=== PATIENT | female | born 1950 | race Two or more races ===

== ENCOUNTER 2021-03-28 10:55 | Outpatient (CLI) | payer OTHER | END 2021-03-28 11:03 | disposition home or self-care (01) | LOC: RAD 10:55 | PROVIDERS: ATTEND Orthopaedic Surgery | DX: M25.561 Pain in right knee (principal); M25.562 Pain in left knee ==

== ENCOUNTER 2021-05-14 13:31 | Outpatient (CLI) | payer OTHER | END 2021-05-14 13:32 | disposition home or self-care (01) | LOC: NUCLEAR 13:31 | PROVIDERS: ATTEND Orthopaedic Surgery | DX: M81.0 Age-related osteoporosis without current pathological fracture (principal) ==

== ENCOUNTER 2022-06-10 10:51 | Outpatient (CLI) | payer OTHER ==
[~2022-06-10] VITALS: Ht 160 cm; Wt 80.3 kg
== END 2022-06-10 11:07 | disposition home or self-care (01) ==
LOC: LAB 10:51
PROVIDERS: ATTEND Orthopaedic Surgery
DX: D64.9 Anemia, unspecified (principal); E88.9 Metabolic disorder, unspecified; D68.8 Other specified coagulation defects; N39.0 Urinary tract infection, site not specified; A49.02 Methicillin resistant Staphylococcus aureus infection, unspecified site; E11.9 Type 2 diabetes mellitus without complications; I10 Essential (primary) hypertension; Z76.89 Persons encountering health services in other specified circumstances

== ENCOUNTER → 2022-06-19 08:00 | Outpatient (CLI) | payer OTHER ==
[~2022-06-19 08:00] MED LIST: ALBUTEROL S5 MG/1 ML IH; ATORVASTATIN CA20 MG PO; BREO IH; COZAAR50 MG PO; DILT-XR120 MG PO; FOSAMAX70 MG PO; SINGULAIR10 MG PO
== END | disposition home or self-care (01) ==
LOC: LAB 08:00 → SURG 06-25 08:30 → EDSTATUS 07-01 10:45
PROVIDERS: ATTEND Orthopaedic Surgery
DX: M17.0 Bilateral primary osteoarthritis of knee (principal); Z03.818 Encounter for observation for suspected exposure to other biological agents ruled out; N39.0 Urinary tract infection, site not specified

== ENCOUNTER → 2022-06-21 08:31 | Outpatient (CLI) | payer OTHER | END | disposition home or self-care (01) | LOC: LAB 08:31 | PROVIDERS: ATTEND Orthopaedic Surgery | DX: N39.0 Urinary tract infection, site not specified (principal) ==

== ENCOUNTER → 2022-06-28 08:48 | Outpatient (CLI) | payer OTHER | END | disposition home or self-care (01) | LOC: LAB 08:48 | PROVIDERS: ATTEND Orthopaedic Surgery | DX: N39.0 Urinary tract infection, site not specified (principal) ==

== ENCOUNTER → 2022-12-06 10:20 | Outpatient (CLI) | payer OTHER ==
[~2022-12-06] VITALS: Ht 160 cm; Wt 80.3 kg
== END | disposition home or self-care (01) ==
LOC: LAB 10:20
PROVIDERS: ATTEND Orthopaedic Surgery
DX: D64.89 Other specified anemias (principal); E88.89 Other specified metabolic disorders; D68.8 Other specified coagulation defects; N39.0 Urinary tract infection, site not specified; A49.02 Methicillin resistant Staphylococcus aureus infection, unspecified site; E11.9 Type 2 diabetes mellitus without complications; Z76.89 Persons encountering health services in other specified circumstances; I10 Essential (primary) hypertension; I49.9 Cardiac arrhythmia, unspecified

== ENCOUNTER 2022-12-09 08:10 | Inpatient (IN) | payer OTHER ==
[~2022-12-09] VITALS: Ht 160 cm; Wt 81.6 kg
[2022-12-16] MEDS ORDERED: CETIRIZINE HCL10 MG (07:58)
[2022-12-16] MEDS ORDERED: NITROFURANTOIN50 MG (07:59)
[2022-12-16] MEDS ORDERED: TRELEGY ELLIPT1 EAC1 (07:59)
[2022-12-16] MEDS ORDERED: DICLOFENAC SOD100 GM (07:59)
[2022-12-16] MEDS ORDERED: BREO ELLIPTA 21 EACH (07:59)
== END 2022-12-19 13:23 | DRG 470 ==
LOC: O/R 12-16 06:13 → SURH 12-16 07:00 → SURG 12-16 14:40
PROVIDERS: ADMIT Orthopaedic Surgery; ATTEND Orthopaedic Surgery
PROC: 0SRC0J9 Replacement of Right Knee Joint with Synthetic Substitute, Cemented, Open Approach (ICD-10-PCS; principal; 2022-12-16 07:00)
DX: M17.11 Unilateral primary osteoarthritis, right knee (principal); D62 Acute posthemorrhagic anemia; I10 Essential (primary) hypertension; E78.5 Hyperlipidemia, unspecified; Z20.822 Contact with and (suspected) exposure to COVID-19

== ENCOUNTER 2023-07-08 10:22 | Outpatient (CLI) | payer OTHER ==
[~2023-07-08 10:22] MED LIST changes: +BREO ELLIPTA 21 EACH; +CETIRIZINE HCL10 MG; +DICLOFENAC SOD100 GM; +NITROFURANTOIN50 MG; +TRELEGY ELLIPT1 EAC1
[2023-07-08 11:21] LABS: HEMOGLOBIN 12.4 g/dL (12.0-15.00); MEAN CELL VOLUME 89.5 fL (80.00-100.00); MEAN CORPUSCULAR HEMOGLOBIN 29.2 pg (27.00-32.0); MEAN CORPUSCULAR HGB CONC 32.7 g/dl (32.0-36.0); PLATELET COUNT 214 K/uL (150-450); RED BLOOD COUNT 4.25 M/uL (4.00-6.00); RED CELL DISTRIBUTION WIDTH 15.3 % (11.5-14.5)
[2023-07-08 11:22] LABS: ABG PH 7.434 (7.35-7.45); ABG PO2 73.4 mmHg (80-100); ABG pCO2 32.1 mmHg (35-45); BASE EXCESS -2.2 mmol/l; BICARBONATE 21.1 mmol/l (23-25)
[2023-07-08 11:23] LABS: allen test SATISFACTORY; o2 21 %; puncture site RADIAL RIGHT
[2023-07-08 11:43] LABS: ERYTHROCYTE SEDIMENTATION RATE 20 mm/hr
== END 2023-07-08 10:24 | disposition home or self-care (01) ==
LOC: LAB 10:22
PROVIDERS: ATTEND Orthopaedic Surgery
DX: M06.4 Inflammatory polyarthropathy (principal); J96.10 Chronic respiratory failure, unspecified whether with hypoxia or hypercapnia; M25.561 Pain in right knee; Z96.651 Presence of right artificial knee joint; Z77.018 Contact with and (suspected) exposure to other hazardous metals

== ENCOUNTER → 2023-08-13 09:08 | Outpatient (CLI) | payer OTHER ==
[2023-08-13 11:00] LABS: ALBUMIN 3.8 gm/dL (3.4-5.0); BILIRUBIN TOTAL 0.99 mg/dL (0.3-1.2); CALCIUM 10.1 mg/dL (8.5-10.1); CREATININE SERUM 0.77 mg/dL (0.55-1.02); GFR 73.28; GLOBULINA 2.8 G/DL (2.4-3.5); MAGNESIUM 2.3 mg/dL (1.8-2.4); PHOSPHOROUS 2.9 mg/dL (2.5-4.9); POTASSIUM 4.24 mEq/L (3.5-5.1); TOTAL PROTEIN 6.6 gm/dL (6.4-8.2)
== END | disposition home or self-care (01) ==
LOC: LAB 09:08
PROVIDERS: ATTEND Orthopaedic Surgery
DX: E55.9 Vitamin D deficiency, unspecified (principal); M85.9 Disorder of bone density and structure, unspecified; E56.1 Deficiency of vitamin K; E21.3 Hyperparathyroidism, unspecified; M81.8 Other osteoporosis without current pathological fracture; E88.89 Other specified metabolic disorders; Z88.7 Allergy status to serum and vaccine

== ENCOUNTER 2023-09-12 12:45 | Outpatient (CLI) | payer OTHER | END 2023-09-12 12:48 | disposition home or self-care (01) | LOC: NUCLEAR 12:45 | PROVIDERS: ATTEND Orthopaedic Surgery | DX: M81.0 Age-related osteoporosis without current pathological fracture (principal) ==

== ENCOUNTER 2024-03-31 14:06 | Inpatient (IN) | payer OTHER ==
[~2024-03-31] VITALS: Ht 160 cm; Wt 78.5 kg
--- NOTE | 2024-03-31 15:10 | NUR ---
PTE ALERTA Y ORIENTADA X3, REFIERE DOLOR EN FLANCO NIA. REFIERE ELLIS GASTROENTEROLOGO LE DIJO TIENE DIVERITCULOS . SE YADI SV Y SE UBICA
[2024-03-31] MEDS ORDERED: 0.9 % SODIUM CHLORIDE 1,000 ML IV STA (16:07)
[2024-03-31] MEDS ORDERED: MEPERIDINE HCL/PF 50 MG/ML VIAL IM STA (16:07)
[2024-03-31] MEDS ORDERED: PROMETHAZINE HCL 25 MG/ML AMPUL IM STA (16:08)
[2024-03-31 16:34] LABS: HEMATOCRIT 39.9 % (36.0-45.00); HEMOGLOBIN 13.4 g/dL (12.0-15.00); MEAN CELL VOLUME 90.9 fL (80.00-100.00); MEAN CORPUSCULAR HEMOGLOBIN 30.5 pg (27.00-32.0); MEAN CORPUSCULAR HGB CONC 33.6 g/dl (32.0-36.0); PLATELET COUNT 209 K/uL (150-450); RED BLOOD COUNT 4.39 M/uL (4.00-6.00); RED CELL DISTRIBUTION WIDTH 14.8 % (11.5-14.5)
--- NOTE | 2024-03-31 16:41 | NUR ---
SE ORIENTA SOBRE TX MEDICO, REFIERE ENTENDER. SE REALIZAN MUESTRAS DE LABORATORIO BAJO MEDIDAS ASEPTICAS. SE ADMINISTRAN MEDICAMENTOS ASHLEIGH ORDEN MEDICA. SE COORDINA CT. PACIENTE MANEJADA POR . SE MANTIENE EN OBSERVACION.
[2024-03-31 16:54] LABS: PROTHROMBIN TIME 10.5 SECONDS (9.0-11.5)
[2024-03-31 16:59] LABS: ALBUMIN 3.9 gm/dL (3.4-5.0); BILIRUBIN TOTAL 0.66 mg/dL (0.3-1.2); BILIRUBIN,CONJUGATED 0.21 mg/dL (0.0-0.2); BILIRUBIN,UNCONJUGATED 0.45 mg/dL (0.0-0.6); CALCIUM 9.6 mg/dL (8.5-10.1); CREATININE SERUM 0.81 mg/dL (0.55-1.02); GFR 69.12; POTASSIUM 4.06 mEq/L (3.5-5.1); TOTAL PROTEIN 7.2 gm/dL (6.4-8.2)
[2024-03-31 17:14] LABS: URINE APPEARANCE Clear; URINE BILIRRUBIN Negative (NEGATIVE); URINE BLOOD Large; URINE COLOR Yellow; URINE GLUCOSE Negative (NEGATIVE); URINE LEUKOCYTE Small; URINE NITRATE Negative; URINE PROTEIN Negative (NEGATIVE); URINE UROBILINOGEN 0.2 E.U./dl
[2024-03-31 17:18] LABS: URINE BACTERIA 28.9 uL (0.0-1933); URINE EPITHELIAL CELLS 6.6 uL (0.0-38.8); URINE RBC 544.8 uL (0.0-20.8); URINE WBC 27.9 uL (0.0-23.2)
[2024-03-31] MEDS ORDERED: MEROPENEM 500 MG/VIAL VIAL IV SCH (22:20)
[2024-03-31] MEDS ORDERED: KETOROLAC TROMETHAMINE 15 MG VIAL IU SCH (22:29)
[2024-03-31] MEDS ORDERED: 0.9 % SODIUM CHLORIDE 1,000 ML IV SCH (22:30)
[2024-03-31] MEDS ORDERED: ACETAMINOPHEN 500 MG GEL..CAP PO PRN (22:30)
[2024-03-31] MEDS ORDERED: ONDANSETRON HCL 4 MG in 0.9 % SODIUM CHLORIDE 50 ML IV PRN (22:30)
[2024-03-31] MEDS ORDERED: MEPERIDINE HCL/PF 25 MG/ML VIAL IM PRN (22:30)
[2024-03-31 23:28] LABS: PARTIAL THROMBOPLASTIN TIME 25.9 SECONDS (22.0-34.0); PROTHROMBIN TIME 10.5 SECONDS (9.0-11.5)
[2024-04-01] MEDS ORDERED: FAMOTIDINE/PF 20 MG in 0.9 % SODIUM CHLORIDE 8 ML IV PUSH SCH (09:00)
[2024-04-01] MEDS ORDERED: DILTIAZEM HCL 120 MG CAP.SR.24H PO SCH (09:00)
[2024-04-01] MEDS ORDERED: LOSARTAN POTASSIUM 50 MG TABLET PO SCH (09:00)
[2024-04-01] MEDS ORDERED: ENOXAPARIN SODIUM 40 MG/0.4 ML SYRINGE SUBCUTANEO SCH (09:00)
[2024-04-01] MEDS ORDERED: METRONIDAZOLE/SODIUM CHLORIDE 100 ML IV SCH (13:00)
[2024-04-01] MEDS ORDERED: ATORVASTATIN CALCIUM 20 MG TABLET PO SCH (17:00)
[2024-04-01 19:01] LABS: CHOL HDL RATIO 2.2 (0-5.0)
[2024-04-02] MEDS ORDERED: CEFTRIAXONE SODIUM 2,000 MG in 0.9 % SODIUM CHLORIDE 100 ML IV SCH (12:00)
[2024-04-02] MEDS ORDERED: KETOROLAC TROMETHAMINE 30 MG VIAL IV SCH (13:42)
[2024-04-02] MEDS ORDERED: AMINO ACIDS 4.25 %/DEXTROSE 5% 1,000 ML PERIFERAL SCH (17:00)
[2024-04-04] MEDS ORDERED: OxyCODONE HCL/APAP UD (PERCOCET) PO PRN (14:00)
[2024-04-04] MEDS ORDERED: COZAAR50 MG PO (14:04)
[2024-04-04] MEDS ORDERED: INTESTINEX680 M1 PO (14:04)
[2024-04-04] MEDS ORDERED: HYOSCYAMINE0.125 M1 SL (14:04)
[2024-04-04] MEDS ORDERED: METRONIDAZOLE500 MG PO (14:04)
[2024-04-04] MEDS ORDERED: LEVOFLOXACIN750 MG PO (14:04)
[2024-04-04] MEDS ORDERED: PANTOPRAZOLE SO20 MG PO (14:04)
[2024-04-04] MEDS ORDERED: OXYC1TAB9 PO (14:04)
[2024-04-04] MEDS ORDERED: DILTIAZEM ER120 M2 PO (14:04)
[2024-04-04] MEDS ORDERED: LIPITOR20 MG PO (14:04)
[2024-04-04] MEDS ORDERED: LACTOBACILLUS ACIDOPHILUS 1 CAP CAP PO SCH (17:00)
[2024-04-04] MEDS ORDERED: HYOSCYAMINE SULFATE 0.125 MG TAB.SUBL SL SCH (18:00)
== END 2024-04-04 14:53 | disposition home or self-care (01) | DRG 392 ==
LOC: ER 14:07 → SEC-K 22:24 → SURH 22:24
PROVIDERS: General Practice; ADMIT Internal Medicine; ATTEND Internal Medicine
PROC: BW21ZZZ Computerized Tomography (CT Scan) of Abdomen and Pelvis (ICD-10-PCS; principal; 2024-03-31)
DX: K57.92 Diverticulitis of intestine, part unspecified, without perforation or abscess without bleeding (principal); I10 Essential (primary) hypertension

== ENCOUNTER 2024-09-19 13:02 | Emergency (ER) | payer OTHER ==
[~2024-09-19] VITALS: Ht 160 cm; Wt 75.7 kg
[~2024-09-19 13:02] MED LIST changes: +DILTIAZEM ER120 M2 PO; +HYOSCYAMINE0.125 M1 SL; +INTESTINEX680 M1 PO; +LEVOFLOXACIN750 MG PO; +LIPITOR20 MG PO; +METRONIDAZOLE500 MG PO; +OXYC1TAB9 PO; +PANTOPRAZOLE SO20 MG PO
[2024-09-19] MEDS ORDERED: LIPITOR40 M1 PO (14:25)
[2024-09-19] MEDS ORDERED: LEVALBUTEROL HCL 1.25 MG/3 ML SOLUTION IH SCH (15:00)
[2024-09-19] MEDS ORDERED: GUAIFENESIN/DEXTROMETHORPHAN 10ML BLIST.PACK PO ONE (15:00)
[2024-09-19] MEDS ORDERED: METHYLPREDNISOLONE SOD SUCC 125 MG VIAL IV ONE (15:00)
[2024-09-19] MEDS ORDERED: AZITHROMYCIN 500 MG VIAL IV ONE (15:00)
[2024-09-19] MEDS ORDERED: IPRATROPIUM BROMIDE 0.5 MG/2.5 ML AMPUL.NEB IH SCH (15:00)
[2024-09-19 16:48] LABS: HEMOGLOBIN 13.7 g/dL (12.0-15.00); MEAN CELL VOLUME 93.2 fL (80.00-100.00); MEAN CORPUSCULAR HEMOGLOBIN 30.4 pg (27.00-32.0); MEAN CORPUSCULAR HGB CONC 32.7 g/dl (32.0-36.0); PLATELET COUNT 191 K/uL (150-450); RED BLOOD COUNT 4.51 M/uL (4.00-6.00); RED CELL DISTRIBUTION WIDTH 14.6 % (11.5-14.5)
[2024-09-19 17:14] LABS: ALBUMIN 3.8 gm/dL (3.4-5.0); BILIRUBIN TOTAL 0.74 mg/dL (0.3-1.2); CALCIUM 9.4 mg/dL (8.5-10.1); CREATININE SERUM 0.92 mg/dL (0.55-1.02); GFR 59.51; GLOBULINA 3.1 G/DL (2.4-3.5); POTASSIUM 3.9 mEq/L (3.5-5.1); TOTAL PROTEIN 6.9 gm/dL (6.4-8.2)
[2024-09-19] MEDS ORDERED: QC TUSSIN DM L118 ML PO (18:01)
[2024-09-19] MEDS ORDERED: LEVALBUTER1.25 MG/0. IH (18:01)
[2024-09-19] MEDS ORDERED: OSEL75CA PO (18:01)
[2024-09-19] MEDS ORDERED: IPRATROPIU0.2 MG/1 M IH (18:01)
[2024-09-19] MEDS ORDERED: OSELTAMIVIR PHOSPHATE 75 MG CAPSULE PO ONE (18:15)
== END 2024-09-19 18:31 | disposition home or self-care (01) ==
LOC: ER 13:05
PROVIDERS: General Practice
DX: R53.81 Other malaise (principal); J10.1 Influenza due to other identified influenza virus with other respiratory manifestations; Z20.822 Contact with and (suspected) exposure to COVID-19; Z88.0 Allergy status to penicillin
CPT/HCPCS: 36415; 71250; 96365; 99284; J0456; J3490

== ENCOUNTER 2025-01-05 23:45 | Emergency (ER) | payer OTHER ==
[~2025-01-05] VITALS: Ht 160 cm; Wt 73.5 kg
[~2025-01-05 23:45] MED LIST changes: +IPRATROPIU0.2 MG/1 M IH; +LEVALBUTER1.25 MG/0. IH; +LIPITOR40 M1 PO; +OSEL75CA PO; +QC TUSSIN DM L118 ML PO
[2025-01-06] MEDS ORDERED: 0.9 % SODIUM CHLORIDE 1,000 ML IV ONE (01:15)
[2025-01-06 01:59] LABS: HEMATOCRIT 40.8 % (36.0-45.00); HEMOGLOBIN 13.7 g/dL (12.0-15.00); MEAN CORPUSCULAR HEMOGLOBIN 30.5 pg (27.00-32.0); MEAN CORPUSCULAR HGB CONC 33.5 g/dl (32.0-36.0); PLATELET COUNT 174 K/uL (150-450); RED BLOOD COUNT 4.48 M/uL (4.00-6.00); RED CELL DISTRIBUTION WIDTH 14.4 % (11.5-14.5)
[2025-01-06 02:15] LABS: PARTIAL THROMBOPLASTIN TIME 24.9 SECONDS (22.0-34.0); PROTHROMBIN TIME 10.9 SECONDS (9.0-11.5)
[2025-01-06 02:20] LABS: ALBUMIN 3.7 gm/dL (3.4-5.0); BILIRUBIN TOTAL 0.97 mg/dL (0.3-1.2); BILIRUBIN,CONJUGATED 0.25 mg/dL (0.0-0.2); BILIRUBIN,UNCONJUGATED 0.72 mg/dL (0.0-0.6); CALCIUM 9.2 mg/dL (8.5-10.1); CREATININE SERUM 0.74 mg/dL (0.55-1.02); GFR 76.51; GLOBULINA 2.5 G/DL (2.4-3.5); POTASSIUM 3.84 mEq/L (3.5-5.1); TOTAL PROTEIN 6.2 gm/dL (6.4-8.2)
[2025-01-06] MEDS ORDERED: BARIUM SULFATE 450 ML ORAL.SUSP PO ONE (03:21)
[2025-01-06 03:26] LABS: PH,URINE 6.5 (5.0-8.0); URINE APPEARANCE Clear; URINE BILIRRUBIN Negative (NEGATIVE); URINE BLOOD Negative; URINE COLOR Yellow; URINE GLUCOSE Negative (NEGATIVE); URINE KETONE Negative (NEGATIVE); URINE LEUKOCYTE Trace; URINE NITRATE Negative; URINE PROTEIN Negative (NEGATIVE); URINE UROBILINOGEN 0.2 E.U./dl
[2025-01-06 03:29] LABS: URINE BACTERIA 26.8 uL (0.0-1933); URINE EPITHELIAL CELLS 2.5 uL (0.0-38.8); URINE WBC 61.8 uL (0.0-23.2)
[2025-01-06 03:37] LABS: URINE CAST 0.14 uL (0.0-1.40); URINE RBC 0.7 uL (0.0-20.8)
== END 2025-01-06 10:26 | disposition home or self-care (01) ==
LOC: ER 23:46
PROVIDERS: General Practice
DX: R10.32 Left lower quadrant pain (principal); Z88.0 Allergy status to penicillin; Z85.51 Personal history of malignant neoplasm of bladder; K57.30 Diverticulosis of large intestine without perforation or abscess without bleeding; N20.1 Calculus of ureter
CPT/HCPCS: 36415; 74177; 96365; 96366; 99284; J7030; Q9965

== ENCOUNTER 2025-02-16 09:53 | Outpatient (CLI) | payer OTHER | END 2025-02-16 09:54 | disposition home or self-care (01) | LOC: NUCLEAR 09:53 | PROVIDERS: ATTEND Orthopaedic Surgery | DX: M81.0 Age-related osteoporosis without current pathological fracture (principal) ==

== ENCOUNTER 2025-05-21 06:03 | Emergency (ER) | payer OTHER ==
[~2025-05-21] VITALS: Ht 162.6 cm; Wt 74.4 kg
[2025-05-21] MEDS ORDERED: METHYLPREDNISOLONE SOD SUCC 125 MG VIAL IV STA (06:31)
[2025-05-21] MEDS ORDERED: IPRATROPIUM/ALBUTEROL SULFATE 3 ML AMPUL.NEB IH STA (06:32)
[2025-05-21] MEDS ORDERED: MAGNESIUM SULFATE IN WATER 2 GM/50 ML PIGGYBAG IV STA (06:33)
[2025-05-21 07:26] LABS: BASO % 0.6 % (0.1-1.2); EOS # 0.15 (0.04-0.54); EOS % 2.2 % (0.7-7.0); LYMPH # 1.70 (1.18-3.74); LYMPH % 24.4 % (19.3-53.1); MEAN PLATELET VOLUME 10.50 fl (9.4-12.4); MONO # 0.60 (0.24-0.82); MONO % 8.6 % (4.7-12.5); NEUT # 4.47 (1.56-6.13); NEUT % 64.1 % (34.0-71.1); RED CELL DISTRIBUTION WIDTH 14.5 % (11.6-14.4)
[2025-05-21 08:59] LABS: COVID-19 AG NEGATIVE (NEGATIVE)
[2025-05-21] MEDS ORDERED: ALBUTEROL SULFATE 3 ML/2.5 MG AMPUL.NEB IH ONE (09:30)
== END 2025-05-21 11:01 | disposition home or self-care (01) ==
LOC: ER 06:03
DX: J45.909 Unspecified asthma, uncomplicated (principal); Z20.822 Contact with and (suspected) exposure to COVID-19; Z88.0 Allergy status to penicillin
CPT/HCPCS: 36415; 71045; 94640; 96365; 99283; J2270; J3490

== ENCOUNTER 2025-06-15 20:15 | Emergency (ER) | payer OTHER ==
[~2025-06-15] VITALS: Ht 160 cm; Wt 72.6 kg
[2025-06-15] MEDS ORDERED: LIPITOR20 MG (20:56)
[2025-06-15] MEDS ORDERED: FAMOTIDINE/PF 20 MG in 0.9 % SODIUM CHLORIDE 8 ML IV PUSH STA (21:54)
[2025-06-15] MEDS ORDERED: METRONIDAZOLE/SODIUM CHLORIDE 500 MG/100 ML PIGGYBACK IV ONE (22:00)
[2025-06-15] MEDS ORDERED: 0.9 % SODIUM CHLORIDE 1,000 ML IV SCH (22:00)
[2025-06-15] MEDS ORDERED: KETOROLAC TROMETHAMINE 30 MG VIAL IV ONE (22:00)
[2025-06-15] MEDS ORDERED: CIPROFLOXACIN IN 5 % DEXTROSE 400 MG/200 ML PIGGYBAG IV ONE (22:00)
[2025-06-15] MEDS ORDERED: HYDROCODONE/CHLORPHEN P-STIREX 5 ML ML PO ONE (22:00)
[2025-06-15 23:15] LABS: BASO % 0.3 % (0.1-1.2); EOS # 0.04 (0.04-0.54); EOS % 0.5 % (0.7-7.0); LYMPH # 0.60 (1.18-3.74); LYMPH % 8.2 % (19.3-53.1); MEAN PLATELET VOLUME 10.40 fl (9.4-12.4); MONO # 0.73 (0.24-0.82); MONO % 9.9 % (4.7-12.5); NEUT # 5.94 (1.56-6.13); NEUT % 80.7 % (34.0-71.1); RED CELL DISTRIBUTION WIDTH 15.7 % (11.6-14.4)
[2025-06-15 23:44] LABS: ALT/SGPT 58.0 U/L (12-78); AST/SGOT 21.0 U/L (15-37); BILIRUBIN TOTAL 0.81 mg/dL (0.3-1.2); BUN CREA RATIO 15.0 (7.0-25.0); CREATININE SERUM 0.92 mg/dL (0.55-1.02); GFR 59.51; GLOBULINA 3.1 G/DL (2.4-3.5); GLUCOSE FASTING 113.0 mg/dL (65-100); OSMOLALITY SERUM 284.0 MOSM/KG (275-295)
[2025-06-16 00:27] LABS: COVID-19 AG NEGATIVE (NEGATIVE)
[2025-06-16] MEDS ORDERED: OSELTAMIVIR PHOSPHATE 75 MG CAPSULE PO ONE (00:30)
[2025-06-16] MEDS ORDERED: OSEL75CA PO (02:19)
[2025-06-16] MEDS ORDERED: INTESTINEX680 M1 PO (02:19)
[2025-06-16] MEDS ORDERED: ZYNCOF 20-400120 ML PO (02:19)
== END 2025-06-16 02:28 | disposition home or self-care (01) ==
LOC: ER 20:15
PROVIDERS: General Practice
DX: J10.1 Influenza due to other identified influenza virus with other respiratory manifestations (principal); R19.7 Diarrhea, unspecified; R10.9 Unspecified abdominal pain; Z20.822 Contact with and (suspected) exposure to COVID-19; Z88.0 Allergy status to penicillin
CPT/HCPCS: 36415; 71046; 74176; 96365; 96366; 99284; J0744; J1885; J3490; J7030